=== PATIENT | male | born 1960 | race Native Hawaiian/Other Pacific Islander ===

== ENCOUNTER 2018-01-09 08:09 | Outpatient (CLI) | payer OTHER | END 2018-01-09 22:03 | disposition home or self-care (01) | LOC: NM 08:09 | DX: R07.89 Other chest pain (principal) | CPT/HCPCS: A9500 ==

== ENCOUNTER 2018-01-22 10:54 | Outpatient (CLI) | payer OTHER ==
[2018-01-22 11:40] LABS: POTASSIUM 3.7 mmol/L (3.6-5.2)
== END 2018-01-22 21:40 | disposition home or self-care (01) ==
LOC: LABW 10:54
PROVIDERS: Internal Medicine Cardiovascular Disease
DX: I50.9 Heart failure, unspecified (principal); Z79.899 Other long term (current) drug therapy; Z51.81 Encounter for therapeutic drug level monitoring
CPT/HCPCS: 36415; 80048; 83880

== ENCOUNTER 2018-08-12 13:47 | Outpatient (CLI) | payer OTHER | END 2018-08-12 22:27 | disposition home or self-care (01) | LOC: RAD 13:47 | DX: J18.9 Pneumonia, unspecified organism (principal) ==

== ENCOUNTER 2022-01-22 07:08 | Emergency (ER) | payer BC ==
[~2022-01-22] VITALS: Ht 182.9 cm; Wt 104.3 kg
[2022-01-22 07:11] VITALS: TEMP 99
[2022-01-22 08:16] LABS: PLATELET COUNT 231 K/uL (142-355)
[2022-01-22 08:25] LABS: POTASSIUM 3.4 mmol/L (3.6-5.2)
[2022-01-22 09:15] VITALS: BP 114/78
[2022-01-22 09:24] LABS: PARTIAL THROMBOPLASTIN TIME 28.6 SECONDS (24.5-33.6)
== END 2022-01-22 09:30 | disposition home or self-care (01) ==
LOC: ED 07:08
PROVIDERS: Hospitalist
DX: J39.0 Retropharyngeal and parapharyngeal abscess (principal); Z11.52 Encounter for screening for COVID-19
CPT/HCPCS: 80048; 85027; 85610; 85730; 87502; 87635; 87651; 96360; 96365; 96372; 96375; 99284; J0696; J1100; J3370; U0003